=== PATIENT | female | born 2000 | race Caucasian/White ===

== ENCOUNTER 2023-09-04 21:40 | Emergency (ER) | payer BC, SELFPAY ==
[2023-09-04 21:43] VITALS: BP 96/63; PULSE 106; RESP 15; TEMP 36.4; O2SAT 96; BMI 19.2
--- NOTE | 2023-09-04 22:05 | EX.ED.DYSGE1 ---
HPI History of Present Illness Chief Complaint: Nausea/Vomiting/Diarrhea Informant: patient Onset/Context/Timing Onset: Today Current Severity: Moderate Maximum Severity: Moderate Narrative Narrative: Patient presents with 4 hours of nausea, vomiting, and diarrhea. She states she was at work all day today and felt well. After getting home she had an upset stomach followed by vomiting and diarrhea. She felt febrile but does not have a thermometer at home. She denies any medical problems. 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 She does not know if this is related to her illness. She denies possibility of . PFSH PFS Medical History IUD (intrauterine device) in place Medical History no medical history no medical history Home Medications spironolactone .ROUTE 09/04/23 [History Last Taken Unknown] ondansetron 4 mg disintegrating tablet 4 mg PO Q8H PRN PRN Nausea #10 tabs 09/05/23 [Rx Last Taken Unknown] Allergy/AdvReac Type Severity Reaction Status Date / Time No Known Allergies Allergy Verified 09/04/23 21:41 Social History Smoking Status: Never smoker ROS ROS ED Constitutional Constitutional ED: Reports fever(s) and subjective; Denies chills Eyes Eyes: Denies change in vision or discharge from eye(s) ENT ENT ED: Denies discharge from eye(s), rhinorrhea or sore throat Cardiovascular Cardiovascular: Denies chest pain or palpitations Respiratory/Chest Respiratory/Chest: Denies cough or dyspnea Gastrointestinal Gastrointestinal: Reports abdominal pain, diarrhea, nausea and vomiting Genitourinary Genitourinary ED: Denies dysuria Musculoskeletal Musculoskeletal: Denies back pain or extremity pain Integumentary Denies Abrasions or rash Neurologic Neurologic: Denies headache(s) or weakness Allergic/Immunologic Allergic/Immunologic ED: Denies lip swelling or urticaria EXAM Physical Exam Const Vital Signs: 09/04/23 21:43 09/04/23 21:43 Temperature 97.5 F L 97.5 F L Temperature Source Temporal Temporal Pulse Rate 106 H 106 H Respiratory Rate 15 15 Blood Pressure 96/63 96/63 Blood Pressure Mean 74 74 Pulse Ox 96 96 Oxygen Delivery Method Room Air Room Air Positive well nourished and well developed General Appearance ED: well developed HEENT Reports dry mucous membranes Mouth ED: Yes dry mucous membranes Mouth: dry mucous membranes Eyes EOMs intact bilaterally Neck no lymphadenopathy Chest Wall inspection of chest normal and palpation of chest normal Resp normal respiratory effort and clear to auscultation bilaterally Cardio regular rate and regular rhythm GI GI Narrative: Abdomen soft with mild epigastric tenderness. No guarding or rebound. Hypoactive bowel sounds are noted. Extremity normal to inspection Neuro oriented x3 and no sensory deficits noted Motor Exam: strength 5/5 throughout Skin no rashes or lesions noted MDM MDM MDM Narrative Medical decision making narrative: Nursing notes do document the patient was drinking in triage without difficulty. Patient will be given Zofran here followed by a p.o. challenge. Patient was given ice chips after Zofran. She states she still feels nauseated and is significant at an alcohol swab to help control her nausea. IV line will be initiated and she will be given a liter of fluids. Labwork obtained to evaluate for leukocytosis, anemia, and electrolyte derangement. CBC returns with white count of 26.5 with 93% neutrophils. Hemoglobin concentrated at 15.4. Chemistry studies unremarkable other than an elevated BUN of 25. test is negative. On repeat exam patient has tenderness in the epigastric and right upper quadrant. Given her elevated white count and focal tenderness on exam I will send her to CT to ensure no evidence of cholecystitis. CT scan returns with evidence of enteritis but no acute gallbladder changes. Patient does feel better on repeat exam. She will be given a prescription for Zofran and a work note for today. Lab Data Labs: Laboratory Results - last 24 hr 09/04/23 23:16 WBC 26.5 H RBC 5.10 Hgb 15.4 H Hct 45.9 MCV 90.0 MCH 30.2 MCHC 33.6 RDW Std Deviation 39.0 RDW Coeff of Flex 11.8 Plt Count 273 MPV 10.9 Immature Gran % (Auto) 0.500 Neut % (Auto) 93.7 H Lymph % (Auto) 1.2 L Garland % (Auto) 3.9 Eos % (Auto) 0.2 Baso % (Auto) 0.5 Absolute Neuts (auto) 24.9 H Absolute Lymphs (auto) 0.31 L Nucleated RBC % 0 Differential Comment SCANNED Sodium 137 Potassium 3.9 Chloride 106 Carbon Dioxide 21.0 Anion Gap 10 BUN 25 H Creatinine 0.92 Estim Creat Clear Calc 77.58 Est GFR (MDRD) Af Amer 98 Est GFR (MDRD) Non-Af 81 BUN/Creatinine Ratio 27.1 H Glucose 98 Calcium 9.5 Serum , Qual NEGATIVE Radiography Diagnostic Testing: Clinical Impression(s) from Imaging Studies Abdomen/Pelvis CT 09/05/23 00:04 IMPRESSION: Fluid-filled small bowel with enhancing and mildly thickened carias which may represent enteritis. No other evidence of an acute intra-abdominal abnormality. Electronically Signed: Alvin Cohn DO at 1:12 EDT , Discharge Plan Triage Chief Complaint: Nausea/Vomiting/Diarrhea ED Provider: Jessie Lambert Dx/Rx/DC Orders Clinical Impression: Gastroenteritis Instructions: ED Gastroenteritis, Viral (Adult) Prescriptions: New ondansetron 4 mg tablet,disintegrating 4 mg PO Q8H PRN PRN (Reason: Nausea) Qty: 10 0RF No Action spironolactone .ROUTE Stand Alone Forms: ED Work / School Excuse Primary Care Provider: CLEMENTINA MESA Referrals: CLEMENTINA MESA [Other] - As Needed Disposition Disposition: Home, Self Care
[2023-09-04] MEDS: Ondansetron ODT 4 MG Tablet PO (22:11)
[2023-09-04] MEDS: DiphenhydrAMINE 50 MG/ML Syringe 12.5 MG IV (23:14)
[2023-09-04] MEDS: 0.9% Normal Saline (1000mL) 1,000 ML 1000 ML IV (23:14)
[2023-09-04] MEDS: Metoclopramide 10 MG/2 ML Vial 5 MG IV (23:15)
[2023-09-04 23:25] LABS: Absolute Lymphocyte Count 0.31 X10^3/uL (0.83-4.51); Absolute Neutrophil Count 24.9 X10^3/uL (2.0-7.7); Basophil# 0.12 X10^3/uL; Basophil% 0.5 % (0-1); Eosinophil# 0.04 X10^3/uL; Eosinophils% 0.2 % (0-5); Hematocrit 45.9 % (37-47); Hemoglobin 15.4 g/dL (12.0-15.0); Lymphocyte # 0.31 X10^3/ul (0.83-4.51); Lymphocyte % 1.2 % (19-41); Mean Corp Hgb Conc 33.6 g/dL (32-36); Mean Corpuscular Hgb 30.2 pg (27.0-32.0); Mean Platelet Vol. 10.9 fl (6.2-12.0); Monocyte# 1.04 X10^3/uL; Monocyte% 3.9 % (0-10); NRBC Flagged by Analyzer 0 % (0-5); Neutrophil # 24.85 X10^3/uL (2.7-7.7); Neutrophil % 93.7 % (47-70); POSITIVE DIFFERENTIAL YES; Platelet Count 273 K/mm3 (150-450); RBC Distribution Width CV 11.8 % (11.6-14.6); White Blood Count 26.5 K/mm3 (4.4-11.0)
[2023-09-04 23:32] LABS: Differential Indicated SCAN CRITERIA MET
[2023-09-04 23:38] LABS: Anion Gap 10 (5-15); BUN 25 mg/dL (7-18); BUN/Creat Ratio 27.1 RATIO (10-20); Calcium,Total 9.5 mg/dL (8.5-10.1); Chloride 106 mmol/L (98-107); Creatinine, Serum 0.92 mg/dL (0.55-1.02); EST Glomerular Filtration Rate 81 mL/min (>60); Est Glom Filt Rate - Afr Amer 98 mL/min (>60); Estimated Creatinine Clearance 77.58 ml/min; Glucose 98 mg/dL (74-106); Potassium 3.9 mmol/L (3.5-5.1); Sodium Level 137 mmol/L (136-145)
[2023-09-05] VITALS: BP 104/57; PULSE 80; RESP 16; TEMP 37.6; O2SAT 99
[2023-09-05 00:01] LABS: Internal QC Validated? YES +Cl - CLEAR BKGD; Pregnancy, Serum, hCG Quali. NEGATIVE Negative
--- NOTE | 2023-09-05 00:04 | CT_ITS ---
INDICATION: vomiting, RUQ pain EXAMINATION: CT Abdomen And Pelvis W/ Contrast Injection TECHNIQUE: Helically acquired images were obtained of the abdomen and pelvis with sagittal and coronal reconstructed images. Individualized dose optimization techniques were used for this CT. IV contrast dosage and agent: 100 mL of Isovue-370. Oral contrast: None. COMPARISON: None. FINDINGS: VESSELS: No abdominal aortic aneurysm or dissection. LIVER: No evidence of a mass. No intrahepatic or extrahepatic biliary duct dilation. GALLBLADDER: No calcified stones. No evidence of cholecystitis. PANCREAS: No focal solid or cystic mass. No evidence of pancreatitis. SPLEEN: Normal. ADRENAL GLANDS: Normal. KIDNEYS AND URETERS: No urinary tract stone. No hydronephrosis or hydroureter. No significant asymmetric perinephric stranding. URINARY BLADDER: Unremarkable. BOWEL: No evidence of diverticulosis or diverticulitis. Appendix not identified. Fluid-filled small bowel with enhancing and mildly thickened carias. No evidence of bowel obstruction. REPRODUCTIVE ORGANS: IUD within the uterus. 4.1 cm simple cyst in the right adnexa likely representing a dominant right ovarian follicle with no follow-up recommended. PERITONEUM: No intraabdominal free fluid or free air. LYMPH NODES: No pathologically enlarged mesenteric or retroperitoneal lymph nodes. ABDOMINAL WALL: No abdominal or pelvic wall hernia. BONES: No acute abnormality. LOWER CHEST: Visualized lung bases are unremarkable. CT/Abdomen/Pelvis W IV Cont ONLY IMPRESSION: Fluid-filled small bowel with enhancing and mildly thickened carias which may represent enteritis. No other evidence of an acute intra-abdominal abnormality. Electronically Signed: Alvin Cohn DO at 1:12 EDT ,
[2023-09-05 00:30] LABS: Differential Comment SCANNED
[2023-09-05 01:59] VITALS: BP 104/57; PULSE 89; RESP 16; TEMP 37.6; O2SAT 96
== END 2023-09-05 02:01 | disposition home or self-care (01) ==
PROVIDERS: Emergency Provider Emergency Medicine; Visit Provider Emergency Medicine
DX: K52.9 Noninfective gastroenteritis and colitis, unspecified (principal)
CPT/HCPCS: 74177; 80048; 84703; 85025; 96361; 96374; 96375; 99283; J7030; Q9967; A4216